=== PATIENT | male | born 1950 | race Caucasian/White ===

== ENCOUNTER 2016-08-16 13:41 | Emergency (ER) | payer BC, OTHER ==
[~2016-08-16] VITALS: Ht 172.7 cm; Wt 81.6 kg
[2016-08-16 13:52] VITALS: BP 136/87
[2016-08-16] MEDS ORDERED: KETOROLAC TROMETH 30 MG/ML 1ML VIAL IM ONE (14:30)
[2016-08-16] MEDS ORDERED: SILVER SULFADIAZINE 1 % TOPICAL CREAM 50GM TOP ONE (14:30)
== END 2016-08-16 15:36 | disposition home or self-care (01) ==
LOC: ER 13:41
DX: T23.221A Burn of second degree of single right finger (nail) except thumb, initial encounter (principal); T23.131A Burn of first degree of multiple right fingers (nail), not including thumb, initial encounter; X13.1XXA Other contact with steam and other hot vapors, initial encounter; Y93.89 Activity, other specified; Y92.89 Other specified places as the place of occurrence of the external cause; Y99.8 Other external cause status
CPT/HCPCS: 16000; 96372; 99284; J1885

== ENCOUNTER 2021-08-31 11:28 | Inpatient (IN) | payer OTHER ==
[~2021-08-31] VITALS: Ht 172.7 cm; Wt 82.3 kg
[2021-08-31] MEDS ORDERED: SODIUM CHLORIDE 0.9% 1,000 ML IV ONE (12:00)
[2021-08-31 12:09] LABS: Basophils # (auto) 0 10 ^3/uL (0-0.2); Basophils % (auto) 0.6 % (0.0-2.0); Eosinophils # (auto) 0.1 10 ^3/uL (0-0.8); Eosinophils % (auto) 0.9 % (0.0-7.0); Hematocrit 39.1 % (41.0-53.0); Hemoglobin 13.7 g/dL (13.5-17.5); Lymphocytes # (auto) 1.6 10 ^3/uL (0.4-5.4); Lymphocytes % (auto) 24.1 % (10.0-50.0); Mean Corpuscular Hgb Conc. 35.1 g/dL (32.0-36.0); Mean Corpuscular Volume 91.1 fL (80.0-100.0); Monocytes # (auto) 0.6 10 ^3/uL (0-1.3); Monocytes % (auto) 9.1 % (0.0-12.0); Neutrophils # (auto) 4.4 10 ^3/uL (1.6-8.6); Neutrophils % (auto) 65.3 % (37.0-80.0); Nucleated Red Blood Cells % 0.1 %; Red Cell Distribution Width 13.6 % (11.8-14.3); White Blood Cell 6.7 10^3/uL (4.4-10.8)
[2021-08-31 12:30] LABS: Albumin 3.5 g/dL (3.4-5.0); Calcium 8.6 mg/dL (8.5-10.1); Potassium 4.1 mmol/L (3.5-5.1)
[2021-08-31 12:39] LABS: Bilirubin, Total 0.7 mg/dL (0.2-1.0); Total Protein 6.1 g/dL (6.4-8.2)
[2021-08-31 12:53] LABS: BUN/Creatinine Ratio 16.4
[2021-08-31 12:57] LABS: INR 1.07 (0.9-1.15); Partial Thromboplastin Time 24.5 sec (23.6-33.0)
[2021-08-31] MEDS ORDERED: ACETAMINOPHEN 325 MG TAB PO PRN ×2 (15:00)
[2021-08-31] MEDS ORDERED: ONDANSETRON HCL 4 MG/2 ML VIAL IV PRN (15:00)
[2021-08-31] MEDS ORDERED: DEXTROSE (50%) 50ML SYRG IV PRN (15:00)
[2021-08-31] MEDS ORDERED: HYDROcodone-ACET 5/325MG TAB PO PRN (15:00)
[2021-08-31] MEDS ORDERED: MORPHINE SULFATE 4 MG/ML SYR/VIAL IV PRN (15:00)
[2021-08-31] MEDS ORDERED: NITROGLYCERIN 0.4 MG SL TAB SL PRN (15:00)
[2021-08-31] MEDS: SODIUM CHLORIDE 0.9% 1,000 ML IV SCH (15:25)
[2021-08-31 17:33] VITALS: BP 143/76
[2021-08-31] MEDS ORDERED: AMLO-489 PO (17:50)
[2021-08-31] MEDS ORDERED: HYDR50TA15 PO (17:50)
[2021-08-31] MEDS ORDERED: LISI40TA11 PO (17:50)
[2021-08-31] MEDS: InsuLIN REG 1unit/0.01ml Soln (100units/ml) SC SCH (17:58)
[2021-08-31] MEDS: ACCU-CHEK COMFORT CURVE STRIP VI SCH (17:59)
[2021-08-31] MEDS: ENOXAPARIN SOD 60 MG/0.6 ML SYRINGE SC SCH (21:46)
[2021-08-31 22:16] VITALS: BP 134/71
[2021-09-01] MEDS: SODIUM CHLORIDE 0.9% 1,000 ML IV SCH ×2 (01:01→07:40)
[2021-09-01 05:26] VITALS: BP 131/77
[2021-09-01 05:59] LABS: Basophils # (auto) 0 10 ^3/uL (0-0.2); Basophils % (auto) 0.7 % (0.0-2.0); Eosinophils # (auto) 0.2 10 ^3/uL (0-0.8); Eosinophils % (auto) 3.2 % (0.0-7.0); Hematocrit 37.5 % (41.0-53.0); Hemoglobin 13.3 g/dL (13.5-17.5); Lymphocytes # (auto) 1.8 10 ^3/uL (0.4-5.4); Lymphocytes % (auto) 34.1 % (10.0-50.0); Mean Corpuscular Hemoglobin 32.2 pg (28.0-32.0); Mean Corpuscular Hgb Conc. 35.4 g/dL (32.0-36.0); Monocytes # (auto) 0.5 10 ^3/uL (0-1.3); Monocytes % (auto) 10.6 % (0.0-12.0); Neutrophils # (auto) 2.6 10 ^3/uL (1.6-8.6); Neutrophils % (auto) 51.4 % (37.0-80.0); Nucleated Red Blood Cells % 0.1 %; Red Blood Cells 4.12 10^6/uL (4.5-5.90); Red Cell Distribution Width 13.3 % (11.8-14.3); White Blood Cell 5.1 10^3/uL (4.4-10.8)
[2021-09-01] MEDS: InsuLIN REG 1unit/0.01ml Soln (100units/ml) SC SCH ×3 (06:00→11:37)
[2021-09-01] MEDS: ACCU-CHEK COMFORT CURVE STRIP VI SCH ×3 (06:00→11:37)
[2021-09-01 06:09] LABS: Albumin 3.1 g/dL (3.4-5.0); BUN/Creatinine Ratio 23.1; Potassium 4.1 mmol/L (3.5-5.1)
[2021-09-01 06:12] LABS: Bilirubin, Total 0.7 mg/dL (0.2-1.0); Total Protein 5.5 g/dL (6.4-8.2)
[2021-09-01] MEDS: ENOXAPARIN SOD 60 MG/0.6 ML SYRINGE SC SCH (08:42)
[2021-09-01 09:00] VITALS: BP 131/79
[2021-09-01] MEDS ORDERED: ENOXAPARIN SOD 40 MG/0.4 ML SYRINGE SC SCH (10:00)
[2021-09-01] MEDS ORDERED: ASPirin 81 mg TAB PO SCH (10:00)
[2021-09-01 12:58] VITALS: BP 139/64
== END 2021-09-01 12:38 | disposition home or self-care (01) | DRG 313 ==
LOC: ER 11:28 → TELE 14:47 → TELE-EAST 17:03
PROVIDERS: ADMIT Internal Medicine; ATTEND Internal Medicine
DX: R07.9 Chest pain, unspecified (principal); N17.9 Acute kidney failure, unspecified; I10 Essential (primary) hypertension; I95.9 Hypotension, unspecified; Z20.822 Contact with and (suspected) exposure to COVID-19
CPT/HCPCS: 36415; 71045; 80053; 82962; 84484; 85025; 85610; 85730; 93005; 93306; 96360; G0378

== ENCOUNTER 2022-11-13 11:28 | Emergency (ER) | payer OTHER ==
[~2022-11-13] VITALS: Ht 172.7 cm; Wt 81.8 kg
[~2022-11-13 11:28] MED LIST: AMLO1TAB22 PO; HYDR-4297 PO; LISI40TA16 PO
[2022-11-13 13:15] VITALS: BP 101/82
[2022-11-13] MEDS ORDERED: TETANUS-DIPTH-ACEL PERTUSSIS 0.5ML SYR Tdap IM ONE (13:30)
[2022-11-13] MEDS ORDERED: LIDOCAINE 1% HCL (LOCAL ANESTH.) INJ 20ML MDV ID ONE (13:30)
== END 2022-11-13 14:47 | disposition home or self-care (01) ==
LOC: ER 11:28
DX: S61.412A Laceration without foreign body of left hand, initial encounter (principal); S61.211A Laceration without foreign body of left index finger without damage to nail, initial encounter; I10 Essential (primary) hypertension; W29.3XXA Contact with powered garden and outdoor hand tools and machinery, initial encounter; Y93.89 Activity, other specified; Y92.89 Other specified places as the place of occurrence of the external cause; Y99.8 Other external cause status
CPT/HCPCS: 12002; 90471; 90715; 99283; J2001

== ENCOUNTER 2024-11-04 16:19 | Inpatient (IN) | payer OTHER, MEDICARE ==
[~2024-11-04] VITALS: Ht 172.7 cm; Wt 85.4 kg
[~2024-11-04 16:19] MED LIST changes: -HYDR-4297 PO; +HYDR50TA47 PO
--- NOTE | 2024-11-04 16:31 | ECG ---
[facility] Test Date: 2024-11-04 Test Time: 16:26:09 Pat Name: KAN REDDY Department: ER Room: 0273T Gender: M Supervisor Bindery: GP : 1950 Requested By: DAVID WHITLEY Order Number: [id number] Reading MD: Deondre Soto Measurements Intervals [place] Rate: 79 P: 46 ME: 161 QRS: -37 QRSD: 169 T: 31 QT: 428 QTc: 491 Interpretive Statements Sinus rhythm Ventricular bigeminy Right bundle branch block Baseline wander in lead(s) V1 Electronically Signed On 11-05-2024 12:37:57 PDT by Deondre Soto Please click the below link to view image of tracing.
--- NOTE | 2024-11-04 16:38 | ED.PDOC ---
History of Present Illness HPI Comments This is a 74-year-old male who comes in with chief complaint of chest pain for the past two months. The pain has been somewhat sporadic but now seems to be worse. The patient now states that the pain is constant and substernal with no radiation. There has been no nausea, vomiting or diarrhea. The patient is currently awaiting a Cardiology consult and is being evaluated by pulmonology. According to the family, the patient may have had a very small IA in the past but was never fully diagnosed and did not receive any treatment. At this time the patient states that the pain is an 8/10. The patient denies any fever or cough. The patient also denies any chills. The patient was brought to the emergency department's by his from home. Time Seen by MD: 16:21 Primary Care Provider: [place] Reviewed Notes: Nurses Notes, Medications, Allergies (No allergies to medications) Allergies: Coded Allergies: NO KNOWN ALLERGIES (Unverified , 08/16/16) Home Meds Reported Medications Lisinopril (Lisinopril) 40 Mg Tab, 40 MG PO DAILY for 30 Days, MG 08/31/21 Amlodipine Besylate (Amlodipine Besylate) 5 Mg Tab, 10 MG PO DAILY for 30 Days, MG 08/31/21 Hydralazine Hcl (Hydralazine Hcl) 50 Mg Tab, 50 MG PO TID for 30 Days, MG 08/31/21 Information Source: Patient, Spouse Mode of Arrival: Wheelchair (See that these into 80s) Severity: Moderate Timing: Days Duration: Intermittent Prehospital treatment: None Associated signs and symptoms Chest pain but no shortness a breath or vomiting Past Medical History PAST MEDICAL HISTORY: HTN Surgical History (Other): Left leg surgery, right shoulder surgery Family History Family History: Family hx of heart julienne, Family hx of stroke Social History Smoker: Non-Smoker Alcohol: Occasionally Drugs: Denies Drug Use Lives In: Home Constitutional: denies: chills, diaphoresis, fatigue, fever, malaise, sweats, weakness, others EENTM: denies: blurred vision, double vision, ear bleeding, ear discharge, ear drainage, ear pain, ear ringing, eye pain, eye redness, hearing loss, mouth pain, mouth swelling, nasal discharge, nose bleeding, nose congestion, nose pain, photophobia, tearing, throat pain, throat swelling, voice changes, others Respiratory: denies: cough, hemoptysis, orthopnea, SOB at rest, shortness of breath, SOB with excertion, stridor, wheezing, others Cardiovascular: reports: chest pain; denies: dizzy spells, diaphoresis, Dyspnea on exertion, edema, irregular heart beat, left arm pain, lightheadedness, palpitations, PND, syncope, others Gastrointestinal: denies: abdomen distended, abdominal pain, blood streaked bowels, constipated, diarrhea, dysphagia, difficulty swallowing, hematemesis, melena, nausea, poor appetite, poor fluid intake, rectal bleeding, rectal pain, vomiting, others Genitourinary: denies: burning, dysuria, flank pain, frequency, hematuria, incontinence, penile discharge, penile sore, pain, testicle pain, testicle swelling, urgency, others Neurological: denies: dizziness, fainting, headache, left sided numbness, left sided weakness, numbness, paresthesia, pre-existing deficit, right sided numbness, right sided weakness, seizure, speech problems, tingling, tremors, weakness, others Musculoskeletal: denies: back pain, gout, joint pain, joint swelling, muscle pain, muscle stiffness, neck pain, others Integumetry: denies: bruises, change in color, change in hair/nails, dryness, laceration, lesions, lumps, rash, wounds, others Allergic/Immunocompromised: denies: Difficulty Healing, Frequent Infections, Hives, Itching, others Hematologic/Lymphatic: denies: anemia, blood clots, easy bleeding, easy bruising, swollen glands, others Endocrine: denies: excessive hunger, excessive sweating, excessive thirst, excessive urination, flushing, intolerance to cold, intolerance to heat, unexplained weight gain, unexplained weight loss, others Psychiatric: denies: anxiety, bipolar disorder, depression, hopeless, panic disorder, schizophrenia, sleepless, suicidal, others Physical Exam General Appearance: Moderate Distress HEENT: Normal ENT Inspection, Pharynx Normal, TMs Normal Neck: Full Range of Motion, Non-Tender, Normal, Normal Inspection Respiratory: Chest Non-Tender, Lungs Clear, No Accessory Muscle Use, No Respiratory Distress, Normal Breath Sounds Cardiovascular: No Edema, No JVD, No Murmur, No Gallop, Normal Peripheral Pulses, Regular Rate/Rhythm Breast Exam: Deferred Gastrointestinal: No Organomegaly, Non Tender, No Pulsatile Mass, Normal Bowel Sounds, Soft Genitalia: Deferred Pelvic: Deferred Rectal: Deferred Extremities: No calf tenderness, Normal capillary refill, Normal inspection, Normal range of motion, Non-tender, No pedal edema Musculoskeletal : Apperance: Normal Neurologic: Alert, well driller II-XII nml as Tested, Motor Weakness, Normal Affect, Normal Mood, No Sensory Deficits Cerebellar Function: Normal Reflexes: Normal Skin: Dry, Normal Color, Warm Lymphatic: No Adenopathy Was a procedure done? Was a procedure done?: No EKG EKG : Pulse Rate (adult): 79 [place]: Normal Block: RBBB ST: Nonsp Differential Dx Considerations may include: ACS, IA, generalized weakness, dehydration X-Ray, Labs, Meds, VS Vital Signs Date Time Temp Pulse Resp B/P (MAP) Pulse Ox O2 Delivery O2 Flow Rate FiO2 11/04/24 20:20 97.6 58 18 134/75 (94) 95 97.6 11/04/24 20:19 Room Air* 0 21 11/04/24 18:20 58 18 120/72 (88) 98 11/04/24 18:20 58 18 97 Room Air 11/04/24 17:03 97.3 61 16 129/66 (87) 97 97.3 11/04/24 16:38 79 11/04/24 16:26 79 Lab Test 11/04/24 19:21 11/04/24 17:45 11/04/24 17:36 11/04/24 16:28 Range/Units Troponin I High Sensitivity 5 5 5 </=54 ng/L Urine Color Light-yellow Yellow Urine Clarity Clear Clear Urine pH 5.5 5.0-9.0 Urine Specific [place] 1.016 1.001-1.035 Urine Protein Negative Negative Urine Ketones Negative Negative Urine Blood Negative Negative /uL Urine Nitrite Negative Negative Urine Bilirubin Negative Negative Urine Urobilinogen Normal Negative mg/dL Urine Leukocyte Esterase Negative Negative /uL Urine RBC None seen 0 - 3 /hpf Urine Microscopic WBC < 1 0-3 /HPF Urine Squamous Epithelial Cells None seen <5 /hpf Urine Bacteria None seen None Seen /hpf Urine Mucus Few None Seen Urine Glucose Normal Normal mg/dL White Blood Count 9.5 4.4-10.8 10^3/uL Red Blood Count 4.72 4.5-5.90 10^6/uL Hemoglobin 14.6 13.5-17.5 g/dL Hematocrit 42.2 41.0-53.0 % Mean Corpuscular Volume 89.5 80.0-100.0 fL Mean Corpuscular Hemoglobin 31.0 28.0-32.0 pg Mean Corpuscular Hemoglobin Concent 34.7 32.0-36.0 g/dL Red Cell Distribution Width 13.7 11.8-14.3 % Platelet Count 158 140-450 10^3/uL Mean Platelet Volume 8.7 6.9-10.8 fL Neutrophils (%) (Auto) 57.6 37.0-80.0 % Lymphocytes (%) (Auto) 31.5 10.0-50.0 % Monocytes (%) (Auto) 8.9 0.0-12.0 % Eosinophils (%) (Auto) 1.3 0.0-7.0 % Basophils (%) (Auto) 0.7 0.0-2.0 % Neutrophils # (Auto) 5.4 1.6-8.6 10 ^3/uL Lymphocytes # (Auto) 3.0 0.4-5.4 10 ^3/uL Monocytes # (Auto) 0.8 0-1.3 10 ^3/uL Eosinophils # (Auto) 0.1 0-0.8 10 ^3/uL Basophils # (Auto) 0.1 0-0.2 10 ^3/uL Nucleated Red Blood Cells 0.1 % D-Dimer, Quantitative 1.80 H 0.0-0.49 mg/L FEU Sodium Level 141 136-145 mmol/L Potassium Level 4.4 3.5-5.1 mmol/L Chloride Level 109 H 98-107 mmol/L Carbon Dioxide Level 24 20-31 mmol/L Anion Gap 8 5-15 Blood Urea Nitrogen 23 9-23 mg/dL Creatinine 0.93 0.700-1.30 mg/dL Glomerular Filtration Rate Calc 86 >90 mL/min BUN/Creatinine Ratio 24.7 H 10.0-20.0 Serum Glucose 84 74-106 mg/dL Calcium Level 9.5 8.7-10.4 mg/dL Magnesium Level 1.9 1.6-2.6 mg/dL Current Medications Medications (Trade) Dose Ordered Sig/Doreen Route Start Time Stop Time Status Last Admin Aspirin 162 mg ONCE ONCE PO 11/04/24 16:30 11/04/24 16:31 DC 11/04/24 18:20 IV Hep-Lock was established. The patient was given aspirin here in the emergency department's The CBC is within normal limits The chemistry panel is within normal limits The troponin level repeated is negative The D-dimer is elevated at 1.8 The patient is being admitted to our hospitalist A CAT scan of the chest is being done to rule out PE The urine test is negative At this time, the patient is being admitted Images Reviewed?: Images reviewed and evaluated by me Time of 1ST Reevaluation: 16:37 Reevaluation 1ST: Unchanged Patient Education/Counseling: Diagnosis, Treatment, Prognosis Family Education/Counseling: Diagnosis, Treatment, Prognosis Departure 1 Departure Time of Disposition: 20:32 Impression: Primary Impression: Acute coronary syndrome Additional Impression: Elevated d-dimer Disposition: ADMITTED INPATIENT Admit to: [facility] Condition: Fair Critical Care Note Critical Care Time?: Yes (35 min-critical care time only) Stability Stability form required: Yes Unstable for transfer: Telemetry monitoring (Telemetry monitoring required), ED Physician Assesment (Clinical assesment) Heart Score Heart Score: Heart Score Response (Comments) Value History Moderate Suspicious 1 EKG Repolarization Disturb 1 Age >65 2 Risk Factors >3 or Hx ASHD 2 Troponin Normal limit 0 Total 6 DAVID WHITLEY MD Nov 04, 2024 16:38
[2024-11-04 16:57] LABS: Basophils # (auto) 0.1 10 ^3/uL (0-0.2); Basophils % (auto) 0.7 % (0.0-2.0); Eosinophils # (auto) 0.1 10 ^3/uL (0-0.8); Eosinophils % (auto) 1.3 % (0.0-7.0); Hematocrit 42.2 % (41.0-53.0); Hemoglobin 14.6 g/dL (13.5-17.5); Lymphocytes % (auto) 31.5 % (10.0-50.0); Mean Corpuscular Hgb Conc. 34.7 g/dL (32.0-36.0); Mean Corpuscular Volume 89.5 fL (80.0-100.0); Monocytes # (auto) 0.8 10 ^3/uL (0-1.3); Monocytes % (auto) 8.9 % (0.0-12.0); Neutrophils # (auto) 5.4 10 ^3/uL (1.6-8.6); Neutrophils % (auto) 57.6 % (37.0-80.0); Nucleated Red Blood Cells % 0.1 %; Platelet Count (auto) 158 10^3/uL (140-450); Red Blood Cells 4.72 10^6/uL (4.5-5.90); Red Cell Distribution Width 13.7 % (11.8-14.3); White Blood Cell 9.5 10^3/uL (4.4-10.8)
[2024-11-04 17:00] LABS: Potassium 4.4 mmol/L (3.5-5.1); Sodium 141 mmol/L (136-145)
[2024-11-04 17:01] LABS: Anion Gap 8 (5-15); Calcium 9.5 mg/dL (8.7-10.4); Carbon Dioxide 24 mmol/L (20-31)
--- NOTE | 2024-11-04 17:05 | DVH ---
EXAM: XY CHEST PORTABLE HISTORY: CP COMPARISON: CXRP on DOS: 08/31/21, CHEST PORTABLE on DOS: 08/31/21 TECHNIQUE: Portable upright AP view of the chest was performed. FINDINGS: No pneumothorax, consolidative infiltrates, or pulmonary edema. The heart is borderline enlarged. The humeral heads are high-riding, greater on the right, consistent with significant rotator cuff tendin opathy. There may be postoperative changes of the right shoulder. IMPRESSION: No acute intrathoracic process.
[2024-11-04 17:06] LABS: BUN/Creatinine Ratio 24.7 (10.0-20.0); Blood Urea Nitrogen 23 mg/dL (9-23); Glucose 84 mg/dL (74-106)
[2024-11-04 17:07] LABS: Magnesium 1.9 mg/dL (1.6-2.6)
[2024-11-04 17:08] LABS: Chloride 109 mmol/L (98-107)
--- NOTE | 2024-11-04 17:26 | DVH ---
EXAM: US LT LOWER DVT Clinical History: left leg swelling Comparison: None Technique: Duplex Doppler evaluation of the deep venous systems of the left lower extremity from the common femo ral veins to the popliteal veins including color Doppler and spectral/pulsed waveform analysis was pe rformed. Findings: No visible intraluminal venous thrombus. No evidence of incompressibility or abnormal color or spectr al Doppler flow visualized in the deep left lower extremity veins. Proximal greater saphenous vein is grossly unremarkable. 3.3 cm benign-appearing lymph node in the left groin. 7.3 cm Reveles's cyst. Impression: 1. No sonographic evidence of deep venous thrombosis throughout the left lower extremity from the pop liteal vein to the common femoral vein.
[2024-11-04 18:02] LABS: Urine Bacteria None Seen /hpf (None Seen)
[2024-11-04 18:10] LABS: Urine Blood Negative /uL (Negative); Urine Clarity Clear (Clear); Urine Color Light-Yellow (Yellow); Urine Mucus FEW (None Seen); Urine Protein, UAD Negative (Negative); Urine Specific Gravity 1.016 (1.001-1.035); Urine Squamous Epithelial Cell None Seen /hpf (<5); Urine Urobilinogen Normal (Negative); Urine WBC < 1 /HPF (0-3); Urine pH 5.5 (5.0-9.0)
[2024-11-04] MEDS: ASPirin 81 mg TAB PO ONE (18:20)
[2024-11-04] MEDS: IOHEXOL 350 MG/ML 100ML IJ ONE (20:31)
--- NOTE | 2024-11-04 22:05 | DVH ---
Procedure: CT CT ANGIO CHEST CONTRAST Reason for study/Clinical History: sob Comparison Study: None Exam Date: 11/04/2024 08:[address] Angio Chest with Contrast TECHNIQUE: Multiple axial CT images of chest was performed following intravenous contrast administrat ion and coronal reformatting was performed. 3-D/MIP images were obtained. Radiation Dose : CTDI volume is 24 mGy. Dose-length product is 150 mGy*cm FINDINGS: Pulmonary Arteries: There are no filling defects within main, lobar, segmental and visualized subsegm ental branch pulmonary arteries. There is normal dimensional of main PA. Lungs: There is no peripheral pulmonary infarction, consolidation, pleural effusion, or right heart strain. There is no pneumothorax or pneumomediastinum. Aorta and Vasculature: There is normal caliber of thoracic aorta without evidence of aortic dissecti on, intramural hematoma or aneurysm. Lymph Nodes: There is no significant intrathoracic or axillary lymphadenopathy on CT size criteria. Lower Neck: Visualized portions of the thyroid gland are unremarkable. Mediastinum: Heart size is normal. There is no pericardial effusion. The esophagus is unremarkabl e. Musculoskeletal: No aggressive focal bony lesions, acute fractures or dislocation. Chest wall: Unremarkable Partially visualized upper abdomen is grossly unremarkable. IMPRESSION: No evidence of acute or chronic pulmonary embolism. END IMPRESSION: All CT scans at this medical facility are performed using dose modulation techniques as appropriate t o a performed exam including the following: Automated exposure control was utilized; adjustment of th e MA and/or KV according to patient size; and use of iterative reconstruction technique.
[2024-11-04] MEDS ORDERED: NITROGLYCERIN 0.4 MG SL TAB SL PRN (23:00)
[2024-11-04] MEDS ORDERED: MORPHINE SULFATE INJ 2 MG/ml SYRG IV PRN (23:00)
[2024-11-05] VITALS (8 sets, daily range): BP systolic 115–149; BP diastolic 65–85; PULSE 48–65; RESP 12–18; TEMP 97–98.9; O2SAT 91–97
[2024-11-05] MEDS ORDERED: CHOL20007 PO (02:51)
[2024-11-05] MEDS: PANTOPRAZOLE 40 MG TAB PO SCH (05:52)
--- NOTE | 2024-11-05 06:30 | DVHHPRES ---
History of Present Illness Resident Creating Document: DL MOJICA RESIDENT History of Present Illness Patient is a 74-year-old male with a past medical history of hypertension presented to the ED with a chief complaint of chest pain. Patient reports chest pain on and off in the last month, described the has pressure-like in character in the middle of his chest, nonradiating, occurred while he was ambulating or at rest had relieved on its own. Patient reports the chest pain got worse yesterday associated with shortness of breath and tightness, palpitations and numbness of his arms but denied sweating following which she came to the hospital for further evaluation. Patient goes to the [facility] and reports that about 3 weeks ago echocardiogram was done which was reported to be normal but he does not have the official report. Past medical history: Hypertension Past surgical history: Multiple surgeries of the left knee for knee replacement Social history: Patient lives with and denies smoking, alcohol, drug use Family history: Patient denies any significant family history of coronary artery disease Home medications: As per the patient she takes amlodipine for high blood pressure,( records indicate lisinopril as well as hydralazine in addition to amlodipine) Review of Systems Review of Systems Seen and examined at the bedside Denies of chest pain present, no shortness of breath Allergies: Coded Allergies: NO KNOWN ALLERGIES (Unverified , 08/16/16) Medications Current Medications Medications Dose Ordered Sig/Doreen Route Start Time Stop Time Status Last Admin Dose Admin Nitroglycerin 0.4 mg Q5MINP PRN SL 11/04/24 23:00 Morphine Sulfate 2 mg Q30M PRN IV 11/04/24 23:00 Amlodipine Besylate 5 mg DAILY PO 11/05/24 10:00 Pantoprazole Sodium 40 mg DAILY@0600 PO 11/05/24 06:00 11/05/24 05:52 40 MG Exam Vital Signs Vital Signs Date Time Temp Pulse Resp B/P (MAP) Pulse Ox O2 Delivery O2 Flow Rate FiO2 11/05/24 05:00 97.6 59 18 140/77 (98) 96 97.6 11/05/24 02:00 Room Air* 0 21 Exam Gen - no pallor, no icterus, no cyanosis, no clubbing, no LAD, no edema . Skin - Patients skin is warm and dry. HEENT - normocephalic, atraumatic, moist mucous membranes. Neck - full ROM, no LAD, no JVD Pulmonary - B/L equal breath sounds, no crackles, no wheezing, no stridor. cardiovascular - regularly irregular S1,S2 heard, no added sounds, no murmurs heard. GI - soft, nontender abdomen. no hepatospleenomegaly. Bowel sounds normoactive Neurological - Patient is A/O X 3 . Bilateral upper extremity strength 5/5, bilateral lower extremity strength 5/5, no facial droop, normal speech, no tremor, no sensory deficiets. Labs/Xrays Labs Test 11/04/24 19:21 11/04/24 17:45 11/04/24 16:28 Range/Units Troponin I High Sensitivity 5 </=54 ng/L Urine Color Light-yellow Yellow Urine Clarity Clear Clear Urine pH 5.5 5.0-9.0 Urine Specific [place] 1.016 1.001-1.035 Urine Protein Negative Negative Urine Ketones Negative Negative Urine Blood Negative Negative /uL Urine Nitrite Negative Negative Urine Bilirubin Negative Negative Urine Urobilinogen Normal Negative mg/dL Urine Leukocyte Esterase Negative Negative /uL Urine RBC None seen 0 - 3 /hpf Urine Microscopic WBC < 1 0-3 /HPF Urine Squamous Epithelial Cells None seen <5 /hpf Urine Bacteria None seen None Seen /hpf Urine Mucus Few None Seen Urine Glucose Normal Normal mg/dL White Blood Count 9.5 4.4-10.8 10^3/uL Red Blood Count 4.72 4.5-5.90 10^6/uL Hemoglobin 14.6 13.5-17.5 g/dL Hematocrit 42.2 41.0-53.0 % Mean Corpuscular Volume 89.5 80.0-100.0 fL Mean Corpuscular Hemoglobin 31.0 28.0-32.0 pg Mean Corpuscular Hemoglobin Concent 34.7 32.0-36.0 g/dL Red Cell Distribution Width 13.7 11.8-14.3 % Platelet Count 158 140-450 10^3/uL Mean Platelet Volume 8.7 6.9-10.8 fL Neutrophils (%) (Auto) 57.6 37.0-80.0 % Lymphocytes (%) (Auto) 31.5 10.0-50.0 % Monocytes (%) (Auto) 8.9 0.0-12.0 % Eosinophils (%) (Auto) 1.3 0.0-7.0 % Basophils (%) (Auto) 0.7 0.0-2.0 % Neutrophils # (Auto) 5.4 1.6-8.6 10 ^3/uL Lymphocytes # (Auto) 3.0 0.4-5.4 10 ^3/uL Monocytes # (Auto) 0.8 0-1.3 10 ^3/uL Eosinophils # (Auto) 0.1 0-0.8 10 ^3/uL Basophils # (Auto) 0.1 0-0.2 10 ^3/uL Nucleated Red Blood Cells 0.1 % D-Dimer, Quantitative 1.80 H 0.0-0.49 mg/L FEU Sodium Level 141 136-145 mmol/L Potassium Level 4.4 3.5-5.1 mmol/L Chloride Level 109 H 98-107 mmol/L Carbon Dioxide Level 24 20-31 mmol/L Anion Gap 8 5-15 Blood Urea Nitrogen 23 9-23 mg/dL Creatinine 0.93 0.700-1.30 mg/dL Glomerular Filtration Rate Calc 86 >90 mL/min BUN/Creatinine Ratio 24.7 H 10.0-20.0 Serum Glucose 84 74-106 mg/dL Calcium Level 9.5 8.7-10.4 mg/dL Magnesium Level 1.9 1.6-2.6 mg/dL Assessment/Plan Assessment/Plan Acute chest pain, rule out ACS ?Stable angina Premature ventricular contraction Hypertensive heart disease Asymptomatic sinus bradycardia PE ruled out - ECG shows premature ventricular contraction with a ventricular bigemini, right bundle branch block - echo pending - cardiology consult due to EKG abnormality and typical chest pain, might benefit from a stress test - aspirin - amlodipine PUD prophylaxis: Protonix Goals of care discussed with the patient for over 27 minutes. Full code Plan discussed with the Dr. Fiore Plan discussed with: Patient My Orders Orders - DL MOJICA RESIDENT Procedure Category Date Status Time Admit ADMIT 11/04/24 Transmitted 22:48 Nitroglycerin PHA 11/04/24 In Process Sublingual (Ntrostat 23:00 Morphine Sulfate PHA 11/04/24 In Process Injection 23:00 Oxygen By Nasal RT 11/04/24 Transmitted Cannula 22:48 Stat Ekg For Chest DWAYNE 11/04/24 In Process Pain 22:48 Notify Of Changes [facility] 11/04/24 In Process From Base 22:48 Eyeglass Lens Generator For [facility] 11/04/24 In Process 24 Hours 22:48 Emergency Dysrhythmia [facility] 11/04/24 In Process Protocol 22:48 Rhythm Strips Once [facility] 11/04/24 In Process Every Shift 22:48 Echo 2d Mode Cardiac US 11/04/24 Logged DOP 22:48 Amlodipine Tablet [facility] 11/05/24 In Process (Norvasc Tablet) 10:00 Pantoprazole Tablet PHA 11/05/24 In Process (Protonix Tablet) 06:00 Cardiac DIET 11/05/24 Transmitted Diet-2gna,Lofat,Lochol Breakfast Date of Service: Nov 04, 2024 Billing Provider: MICHELLE FIORE MD Common Visit Codes: 93739-[id number] INP/OBS CARE (HIGH) Secondary Visit Codes: [id number] CARE PLAN 30 MINUTES DL MOJICA RESIDENT Nov 05, 2024 06:30
[2024-11-05 07:25] LABS: Alanine Aminotransferase 17 U/L (7-40); Alkaline Phosphatase 109 U/L (46-116); Anion Gap 5 (5-15); Aspartate Aminotransferase 16 U/L (13-40); Blood Urea Nitrogen 16 mg/dL (9-23); Calcium 9.3 mg/dL (8.7-10.4); Carbon Dioxide 26 mmol/L (20-31); Cholesterol 167 mg/dL (< 200); Glucose 101 mg/dL (74-106); HDL Cholesterol 50 mg/dL (40-59); Magnesium 2.1 mg/dL (1.6-2.6); Potassium 4.1 mmol/L (3.5-5.1); Sodium 141 mmol/L (136-145); Total Protein 6.2 g/dL (5.7-8.2); Triglycerides 91 mg/dL (< 150)
[2024-11-05 07:26] LABS: Bilirubin, Total 0.4 mg/dL (0.2-1.0)
[2024-11-05 07:28] LABS: Chloride 110 mmol/L (98-107); LDL Cholesterol 101 mg/dL (< 100)
[2024-11-05] MEDS: ATORVASTATIN 20 MG TAB PO ONE (09:53)
[2024-11-05] MEDS: ASPirin 81 mg TAB PO SCH (09:54)
[2024-11-05] MEDS: amLODIPine BESYLATE 5 MG TAB PO SCH (12:04)
--- NOTE | 2024-11-05 14:47 | DVHINCON2 ---
Date Seen: Nov 05, 2024 Referring Physician MD Raissa resident Reason for Consultation Chest pain, possible stress test History of Present Illness This is a 74-year-old male patient who presents to the emergency room with chief complaint of chest pain. The patient reports he has been experiencing intermittent chest pain for approximately two months he describes the pain as unprovoked, intermittent, tight in nature, substernal with radiation across both sides of his chest. Associated symptoms include shortness of breath. Initial twelve lead electrocardiogram reveals sinus rhythm with bigeminy PVCs and right bundle branch block. Serial troponin levels have been negative. Significant past medical history includes hypertension, and obesity. The patient reports that his primary doctor was in the process of giving him a referral to a superintendent local. The patient sees a primary doctor within the [facility] system at [place]. He denies any recent cardiac workup. Past Medical History Past medical history reviewed. No other significant than mentioned above. Past Surgical History Left knee replacement Right rotator cuff repair Family History: Cardiovascular disease G8 MOTHER Family History Family history reviewed. Social History Denies the use of tobacco, alcohol or illicit drugs. Allergies: Coded Allergies: NO KNOWN ALLERGIES (Unverified , 08/16/16) Home Meds Reported Medications Cholecalciferol (VITAMIN D3) 2,000 Unit Tab, 1 TAB PO DAILY, #30 TAB 5 Refills 11/05/24 Hydralazine Hcl (Hydralazine Hcl) 50 Mg Tab, 50 MG PO TID for 30 Days, MG 08/31/21 Home Meds Home medications reviewed. Current Medications Current Medications Medications (Trade) Dose Ordered Sig/Doreen Route PRN Reason Start Time Stop Time Status Last Admin Nitroglycerin (Ntrostat Sublingual) 0.4 mg Q5MINP PRN SL FOR CHEST PAIN 11/04/24 23:00 Morphine Sulfate 2 mg Q30M PRN IV FOR CHEST PAIN 11/04/24 23:00 Amlodipine Besylate (Norvasc Tablet) 5 mg DAILY PO 11/05/24 10:00 11/05/24 12:04 Pantoprazole Sodium (Protonix Tablet) 40 mg DAILY@0600 PO 11/05/24 06:00 11/05/24 05:52 Aspirin 81 mg DAILY PO 11/05/24 10:00 11/05/24 09:54 Atorvastatin Calcium (Lipitor) 80 mg HS PO 11/06/24 22:00 Review of Systems Constitutional: No symptom reported Ears, Nose, & Throat: No symptom reported Eyes: No symptom reported Neurological: No symptoms reported Pulmonary/Respiratory: Shortness of breath Cardiovascular: Chest pain Gastrointestinal: No symptom reported Genitourinary: No symptom reported Musculoskeletal: No symptom reported Skin: No symptom reported Psychiatric: No symptom reported Endocrine: No symptom reported Hematologic/Lymphatic: No symptom reported Vital Signs Vital Signs Date Time Temp Pulse Resp B/P (MAP) Pulse Ox O2 Delivery O2 Flow Rate FiO2 11/05/24 12:39 97.3 64 16 132/85 (101) 95 97.3 11/05/24 08:00 Room Air* 0 96 21 Physical Exam General Appearance: Cooperative. Obese Pulmonary/Respiratory: Clear, bilateral breaths sounds. Cardiovascular/Chest: Regular rate and rhythm. Peripheral Pulses: 2+ Radial (R). 2+ Radial (L). 2+ Pedal (R). 2+ Pedal (L) Abdominal Exam: Normal bowel sounds. Ankle Exam: Negative ankle edema Lower extremities: Negative lower extremity edema Neuro/Mental Status: A/OX4, coherent. Thoughts/Psych: Normal thought pattern. Appropriate mood and affect. Good judgment and insight. Appearance: No acute distress. Skin Exam: Normal inspection. Normal color. Warm and dry. Labs/Diagnostic Data Labs Test 11/05/24 06:47 11/04/24 19:21 11/04/24 17:45 11/04/24 16:28 Range/Units Sodium Level 141 136-145 mmol/L Potassium Level 4.1 3.5-5.1 mmol/L Chloride Level 110 H 98-107 mmol/L Carbon Dioxide Level 26 20-31 mmol/L Anion Gap 5 5-15 Blood Urea Nitrogen 16 9-23 mg/dL Creatinine 0.94 0.700-1.30 mg/dL Glomerular Filtration Rate Calc 85 >90 mL/min BUN/Creatinine Ratio 17.0 10.0-20.0 Serum Glucose 101 74-106 mg/dL Calcium Level 9.3 8.7-10.4 mg/dL Magnesium Level 2.1 1.6-2.6 mg/dL Total Bilirubin 0.4 0.2-1.0 mg/dL Aspartate Amino Transferase (AST) 16 13-40 U/L Alanine Aminotransferase (ALT) 17 7-40 U/L Alkaline Phosphatase 109 46-116 U/L B-Type Natriuretic Peptide 60.38 0-100 pg/mL Total Protein 6.2 5.7-8.2 g/dL Albumin 4.0 3.2-4.8 g/dL Triglycerides Level 91 < 150 mg/dL Cholesterol Level 167 < 200 mg/dL LDL Cholesterol 101 H < 100 mg/dL HDL Cholesterol 50 40-59 mg/dL Troponin I High Sensitivity 5 </=54 ng/L Urine Color Light-yellow Yellow Urine Clarity Clear Clear Urine pH 5.5 5.0-9.0 Urine Specific [place] 1.016 1.001-1.035 Urine Protein Negative Negative Urine Ketones Negative Negative Urine Blood Negative Negative /uL Urine Nitrite Negative Negative Urine Bilirubin Negative Negative Urine Urobilinogen Normal Negative mg/dL Urine Leukocyte Esterase Negative Negative /uL Urine RBC None seen 0 - 3 /hpf Urine Microscopic WBC < 1 0-3 /HPF Urine Squamous Epithelial Cells None seen <5 /hpf Urine Bacteria None seen None Seen /hpf Urine Mucus Few None Seen Urine Glucose Normal Normal mg/dL White Blood Count 9.5 4.4-10.8 10^3/uL Red Blood Count 4.72 4.5-5.90 10^6/uL Hemoglobin 14.6 13.5-17.5 g/dL Hematocrit 42.2 41.0-53.0 % Mean Corpuscular Volume 89.5 80.0-100.0 fL Mean Corpuscular Hemoglobin 31.0 28.0-32.0 pg Mean Corpuscular Hemoglobin Concent 34.7 32.0-36.0 g/dL Red Cell Distribution Width 13.7 11.8-14.3 % Platelet Count 158 140-450 10^3/uL Mean Platelet Volume 8.7 6.9-10.8 fL Neutrophils (%) (Auto) 57.6 37.0-80.0 % Lymphocytes (%) (Auto) 31.5 10.0-50.0 % Monocytes (%) (Auto) 8.9 0.0-12.0 % Eosinophils (%) (Auto) 1.3 0.0-7.0 % Basophils (%) (Auto) 0.7 0.0-2.0 % Neutrophils # (Auto) 5.4 1.6-8.6 10 ^3/uL Lymphocytes # (Auto) 3.0 0.4-5.4 10 ^3/uL Monocytes # (Auto) 0.8 0-1.3 10 ^3/uL Eosinophils # (Auto) 0.1 0-0.8 10 ^3/uL Basophils # (Auto) 0.1 0-0.2 10 ^3/uL Nucleated Red Blood Cells 0.1 % D-Dimer, Quantitative 1.80 H 0.0-0.49 mg/L FEU Assessment Chest pain, rule out coronary ischemia Rule out structural heart disease Hypertension Obesity Plan/Recommendation We will continue with the following plan/recommendations (Dr. Mazariegos): * Transthoracic echocardiogram to evaluate cardiac function * Chest pain protocol * HEART score: 4 points (moderate score) * Blood pressure control * Cardiac surveillance * Nuclear stress test Patient seen and examined at bedside with . We will proceed with a nuclear stress test at soonest availability. In the meantime, continue with medical management. Thank you for allowing us to care for this patient. Please call with any questions or concerns. Critical care time spent: 44 minutes This medical document was created using an electronic medical record system with voice recognition software and computerized dictation system. Although this document has been carefully reviewed, there might still be some phonetic and typographical errors. Occasional wrong-word or ``sound-alike substitutions may have occurred due to the inherent limitations of voice recognition software. These areas are purely typographical due to imperfections of the software programs and do not reflect any compromise in the patient's medical care. Please read the chart carefully and recognize, using context, where these substitutions have occurred. Plan discussed with: Patient NYHA Physical activity limitations: NA Date of Service: Nov 05, 2024 Billing Provider: WHITLEY GORMAN Cardiology Common Codes: [id number] INP/OBS CARE (High) Cardiology Consultation Codes: [id number] CONSULT <45MIN WHITLEY GORMAN Nov 05, 2024 14:47
--- NOTE | 2024-11-05 18:51 | DVHPNRES ---
Progress Note Date Seen: Nov 05, 2024 Resident Creating Document: MANOJ POE HEYDI Has the PT tested + for MRSA If YES, has PT been informed?: No Medical Necessity Reason Pt with a Central, PICC or Fol: No Subjective Review of Systems Patient is a 74-year-old male with a past medical history of hypertension presented to the ED with a chief complaint of chest pain. Patient reports chest pain on and off in the last month, described the has pressure-like in character in the middle of his chest, nonradiating, occurred while he was ambulating or at rest had relieved on its own. Patient reports the chest pain got worse yesterday associated with shortness of breath and tightness, palpitations and numbness of his arms but denied sweating following which she came to the hospital for further evaluation. Patient goes to the [facility] and reports that about 3 weeks ago echocardiogram was done which was reported to be normal but he does not have the official report. Patient seen and examined at the bedside. Patient is feeling better since admission but still complained of mild chest pain. Objective vital signs Vital Sign Date Time Temp Pulse Resp B/P (MAP) Pulse Ox O2 Delivery O2 Flow Rate FiO2 11/05/24 16:30 97.0 53 14 144/78 (100) 97 97.0 11/05/24 08:00 Room Air* 0 96 21 Total Intake and Output 11/04/24 11/04/24 11/05/24 15:00 23:00 07:00 Intake Total 0 ml Balance 0 ml medications Current Medications Medications Dose Ordered Sig/Doreen Route Start Time Stop Time Status Last Admin Dose Admin Nitroglycerin 0.4 mg Q5MINP PRN SL 11/04/24 23:00 Morphine Sulfate 2 mg Q30M PRN IV 11/04/24 23:00 Amlodipine Besylate 5 mg DAILY PO 11/05/24 10:00 11/05/24 12:04 5 MG Pantoprazole Sodium 40 mg DAILY@0600 PO 11/05/24 06:00 11/05/24 05:52 40 MG Aspirin 81 mg DAILY PO 11/05/24 10:00 11/05/24 09:54 81 MG Atorvastatin Calcium 80 mg HS PO 11/06/24 22:00 Examination General Appearance: Alert, Oriented X3, Cooperative, No acute distress HEENT: Atraumatic, PERRLA, EOMI, Mucous membrane moist/pink Respiratory: Clear to auscultation, Normal air movement Cardiovascular: Regular rate, Normal S1, Normal S2, No murmurs, no chest wall tenderness Abdominal: Normal bowel sounds, Soft, No tenderness, No hepatospenomegaly, No masses Extremities: No clubbing, No cyanosis, No edema, Normal pulses, No tenderness/swelling Skin: No rashes, No breakdown, No significant lesion Neuro: Normal gait, Normal speech, Strength at 5/5 X4 ext, Normal tone, Sensation intact, Cranial nerves 3-12 NL, Reflexes 2+ Psych/Mental Status: Mental status NL, Mood NL laboratory and microbiology Laboratory Tests 11/05/24 06:47 11/04/24 16:28 Test 11/05/24 06:47 Range/Units Serum Glucose 101 74-106 mg/dL Labs and/or images reviewed: Labs reviewed by me, Image(s) reviewed by me Problem List/Assessment/Plan Problem List/Assessment/Plan Chest pain, possibly cardiac Stable angina PVC, bigeminy History of hypertension Hypertensive heart disease Sinus bradycardia Ruled out pulmonary emboli/DVT Obesity * EKGs upon admission showed bigeminal PVCs, currently sinus rhythm with LBB * Troponin I and BNP is are within normal limits Plan/recommendation Consulted cardiology, recommended stress test Aspirin, atorvastatin and metoprolol Continue home meds, amlodipine DIET: Cardiac diet DVT PROPHYLAXIS: Lovenox GI PROPHYLAXIS:: Protonix CODE STATUS: Goal of care discussed for more than 18 minutes, full code DISPOSITION: Telemetry Patient's status and plan discussed with the patient. Case discussed with Dr. Fonseca. Plan discussed with: Patient, Other (RN) My Orders My Orders Orders - MANOJ POE Procedure Category Date Status Time Atorvastatin (Lipitor) PHA 11/06/24 In Process 22:00 * Cardiology Consult CONS 11/05/24 Transmitted 12:43 Date of Service: Nov 05, 2024 Billing Provider: RAPHAEL FONSECA MD Common Visit Codes: [id number] INP/OBS CARE(HIGH) MANOJ POE RESDIENT Nov 05, 2024 18:51 RAPHAEL FONSECA MD Nov 05, 2024 20:20
[2024-11-05] MEDS: METOPROLOL TARTRATE 25 MG TAB PO ONE (19:14)
[2024-11-05] MEDS: amLODIPine BESYLATE 5 MG TAB PO ONE (19:14)
--- NOTE | 2024-11-05 20:57 | DVHSR ---
APPROVED REPORT EXAM: Two-dimensional and M-mode echocardiogram with Doppler and color Doppler. Blood Pressure: 140/77 mmHg INDICATION Chest Pain PVC RISK FACTORS Height: 68, Weight: 185 DIMENSIONS LVDd5.3 (3.8-5.7cm)LA (2D)4.8 (1.9-4.0cm)Aortic Root4.0 (2.0-3.7cm) LVDs3.9 (2.5-4.0cm)LA (MM) (1.9-4.0cm)Aortic Cusp Exc1.6 (1.5-2.0cm) EF (%) 50.0 (55-70%)Rt. Atrium3.8 (1.9-4.0cm)Asc. Aorta cm Mitral Valve MitralMitral Stenosis E wave0.51m/sMV Mean GR.mmHg A wave0.76m/sMV Peak GR.mmHg E/A ratio0.72D MVAcm2 DECEL [id number] 1/2 [id number] IVRTmsDop MVA1.18cm2 Aortic Valve Aortic ValveAortic Stenosis V10.67m/Shaan Mean GR.3mmHg V21.31m/Shaan Peak GR.7mmHg LVOT Diameter2.6 (1.8-2.4cm)Doppler AVA2.71cm2 AI P 1/2 [id number] Pulmonic Valve V20.81m/s Tricuspid Valve TR Velocity2.52m/s [id number] Conclusion LV EF IS 65% NORMAL VALVES NORMAL RV FUNCTION NO EFFUSION DILATED RV MODERATELY DILATED LA
[2024-11-05] MEDS: METOPROLOL TARTRATE 25 MG TAB PO SCH (22:00)
--- NOTE | 2024-11-05 23:49 | DVHINCON2 ---
Date Seen: Nov 05, 2024 Referring Physician MD Raissa resident Reason for Consultation Chest pain, possible stress test History of Present Illness This is a 74-year-old male with a past medical history of hypertension, and obesity who presents to the emergency room with a complaint of chest pain. Patient reports he has been experiencing intermittent chest pain for approximately two months he describes the pain as unprovoked, intermittent, tight in nature, substernal with radiation across both sides of his chest. Associated symptoms include shortness of breath. Initial twelve lead electrocardiogram reveals sinus rhythm with bigeminy PVCs and right bundle branch block. Serial troponin levels have been negative. The patient reports that his primary doctor was in the process of giving him a referral to a manager financial. The patient sees a primary doctor within the [facility] system at [place]. He denies any recent cardiac workup. Chest x-ray shows NAD. LLE Doppler is negative for DVT. CTA chest demonstrated no evidence of acute or chronic pulmonary embolism. Patient was admitted to the hospital. I am asked to consult on this patient. Past Medical History Past medical history reviewed. No other significant than mentioned above. Past Surgical History Left knee replacement Right rotator cuff repair Family History: Cardiovascular disease G8 MOTHER Allergies: Coded Allergies: NO KNOWN ALLERGIES (Unverified , 08/16/16) Home Meds Reported Medications Cholecalciferol (VITAMIN D3) 2,000 Unit Tab, 1 TAB PO DAILY, #30 TAB 5 Refills 11/05/24 Hydralazine Hcl (Hydralazine Hcl) 50 Mg Tab, 50 MG PO TID for 30 Days, MG 08/31/21 Current Medications Current Medications Medications (Trade) Dose Ordered Sig/Doreen Route PRN Reason Start Time Stop Time Status Last Admin Nitroglycerin (Ntrostat Sublingual) 0.4 mg Q5MINP PRN SL FOR CHEST PAIN 11/04/24 23:00 Morphine Sulfate 2 mg Q30M PRN IV FOR CHEST PAIN 11/04/24 23:00 Amlodipine Besylate (Norvasc Tablet) 5 mg DAILY PO 11/05/24 10:00 11/05/24 19:09 DC 11/05/24 12:04 Pantoprazole Sodium (Protonix Tablet) 40 mg DAILY@0600 PO 11/05/24 06:00 11/05/24 05:52 Aspirin 81 mg DAILY PO 11/05/24 10:00 11/05/24 09:54 Atorvastatin Calcium (Lipitor) 80 mg HS PO 11/06/24 22:00 Metoprolol Tartrate (Lopressor Tablet) 12.5 mg BID PO 11/05/24 22:00 Amlodipine Besylate (Norvasc Tablet) 5 mg DAILY PO 11/06/24 10:00 Review of Systems Constitutional: No symptom reported Ears, Nose, & Throat: No symptom reported Eyes: No symptom reported Neurological: No symptoms reported Pulmonary/Respiratory: Shortness of breath Cardiovascular: Chest pain Gastrointestinal: No symptom reported Genitourinary: No symptom reported Musculoskeletal: No symptom reported Skin: No symptom reported Psychiatric: No symptom reported Endocrine: No symptom reported Hematologic/Lymphatic: No symptom reported Vital Signs Vital Signs Date Time Temp Pulse Resp B/P (MAP) Pulse Ox O2 Delivery O2 Flow Rate FiO2 11/05/24 19:14 144/78 11/05/24 19:14 63 11/05/24 16:30 97.0 14 97 97.0 11/05/24 08:00 Room Air* 0 96 21 Physical Exam GENERAL: Alert and oriented x 3. No acute distress. EYES: PERRL, EOMI. Anicteric. HENT: Moist mucous membranes. LUNGS: Clear to auscultation bilaterally. CARDIOVASCULAR: Regular rate and rhythm. ABDOMEN: Soft, nontender and nondistended. EXTREMITIES: No edema. NEUROLOGIC: No focal neurological deficits. SKIN: Warm, dry. Labs/Diagnostic Data Labs Test 11/05/24 06:47 11/04/24 19:21 11/04/24 17:45 11/04/24 16:28 Range/Units Sodium Level 141 136-145 mmol/L Potassium Level 4.1 3.5-5.1 mmol/L Chloride Level 110 H 98-107 mmol/L Carbon Dioxide Level 26 20-31 mmol/L Anion Gap 5 5-15 Blood Urea Nitrogen 16 9-23 mg/dL Creatinine 0.94 0.700-1.30 mg/dL Glomerular Filtration Rate Calc 85 >90 mL/min BUN/Creatinine Ratio 17.0 10.0-20.0 Serum Glucose 101 74-106 mg/dL Hemoglobin A1c 5.5 <5.7 % A1C Calcium Level 9.3 8.7-10.4 mg/dL Magnesium Level 2.1 1.6-2.6 mg/dL Total Bilirubin 0.4 0.2-1.0 mg/dL Aspartate Amino Transferase (AST) 16 13-40 U/L Alanine Aminotransferase (ALT) 17 7-40 U/L Alkaline Phosphatase 109 46-116 U/L B-Type Natriuretic Peptide 60.38 0-100 pg/mL Total Protein 6.2 5.7-8.2 g/dL Albumin 4.0 3.2-4.8 g/dL Triglycerides Level 91 < 150 mg/dL Cholesterol Level 167 < 200 mg/dL LDL Cholesterol 101 H < 100 mg/dL HDL Cholesterol 50 40-59 mg/dL Troponin I High Sensitivity 5 </=54 ng/L Urine Color Light-yellow Yellow Urine Clarity Clear Clear Urine pH 5.5 5.0-9.0 Urine Specific [place] 1.016 1.001-1.035 Urine Protein Negative Negative Urine Ketones Negative Negative Urine Blood Negative Negative /uL Urine Nitrite Negative Negative Urine Bilirubin Negative Negative Urine Urobilinogen Normal Negative mg/dL Urine Leukocyte Esterase Negative Negative /uL Urine RBC None seen 0 - 3 /hpf Urine Microscopic WBC < 1 0-3 /HPF Urine Squamous Epithelial Cells None seen <5 /hpf Urine Bacteria None seen None Seen /hpf Urine Mucus Few None Seen Urine Glucose Normal Normal mg/dL White Blood Count 9.5 4.4-10.8 10^3/uL Red Blood Count 4.72 4.5-5.90 10^6/uL Hemoglobin 14.6 13.5-17.5 g/dL Hematocrit 42.2 41.0-53.0 % Mean Corpuscular Volume 89.5 80.0-100.0 fL Mean Corpuscular Hemoglobin 31.0 28.0-32.0 pg Mean Corpuscular Hemoglobin Concent 34.7 32.0-36.0 g/dL Red Cell Distribution Width 13.7 11.8-14.3 % Platelet Count 158 140-450 10^3/uL Mean Platelet Volume 8.7 6.9-10.8 fL Neutrophils (%) (Auto) 57.6 37.0-80.0 % Lymphocytes (%) (Auto) 31.5 10.0-50.0 % Monocytes (%) (Auto) 8.9 0.0-12.0 % Eosinophils (%) (Auto) 1.3 0.0-7.0 % Basophils (%) (Auto) 0.7 0.0-2.0 % Neutrophils # (Auto) 5.4 1.6-8.6 10 ^3/uL Lymphocytes # (Auto) 3.0 0.4-5.4 10 ^3/uL Monocytes # (Auto) 0.8 0-1.3 10 ^3/uL Eosinophils # (Auto) 0.1 0-0.8 10 ^3/uL Basophils # (Auto) 0.1 0-0.2 10 ^3/uL Nucleated Red Blood Cells 0.1 % D-Dimer, Quantitative 1.80 H 0.0-0.49 mg/L FEU Assessment Chest pain, rule out coronary ischemia. Rule out structural heart disease. Hypertension. Obesity. Plan/Recommendation I agree with your ongoing assessment and care of plan. Patient has been seen by Nury Daniel NP on my behalf, her and I discussed the plan with the patient. Transthoracic echocardiogram to evaluate cardiac function. Chest pain protocol. HEART score: 4 points (moderate score). Blood pressure control. Cardiac surveillance. Nuclear stress test. Additional plan as per the hospital course. Plan discussed with: Patient NYHA Physical activity limitations: NA Date of Service: Nov 05, 2024 Billing Provider: RASHMI GOMEZ MD Cardiology Common Codes: [id number] INP/OBS CARE (High) Cardiology Consultation Codes: [id number] CONSULT <45MIN RASHMI GOMEZ MD Nov 05, 2024 21:00
[2024-11-06] VITALS (8 sets, daily range): BP systolic 107–148; BP diastolic 67–86; PULSE 50–91; RESP 14–19; TEMP 97.5–98.5; O2SAT 93–97
[2024-11-06 05:39] LABS: Basophils # (auto) 0 10 ^3/uL (0-0.2); Basophils % (auto) 0.5 % (0.0-2.0); Eosinophils # (auto) 0.2 10 ^3/uL (0-0.8); Eosinophils % (auto) 2.3 % (0.0-7.0); Hematocrit 44.3 % (41.0-53.0); Hemoglobin 15.2 g/dL (13.5-17.5); Lymphocytes # (auto) 1.8 10 ^3/uL (0.4-5.4); Lymphocytes % (auto) 20.7 % (10.0-50.0); Mean Corpuscular Hemoglobin 30.7 pg (28.0-32.0); Mean Corpuscular Hgb Conc. 34.3 g/dL (32.0-36.0); Mean Corpuscular Volume 89.5 fL (80.0-100.0); Monocytes % (auto) 11.7 % (0.0-12.0); Neutrophils # (auto) 5.6 10 ^3/uL (1.6-8.6); Neutrophils % (auto) 64.8 % (37.0-80.0); Platelet Count (auto) 154 10^3/uL (140-450); Red Blood Cells 4.95 10^6/uL (4.5-5.90); Red Cell Distribution Width 13.9 % (11.8-14.3); White Blood Cell 8.7 10^3/uL (4.4-10.8)
[2024-11-06 06:02] LABS: Alanine Aminotransferase 16 U/L (7-40); Alkaline Phosphatase 107 U/L (46-116); Anion Gap 5 (5-15); Aspartate Aminotransferase 15 U/L (13-40); BUN/Creatinine Ratio 18.7 (10.0-20.0); Blood Urea Nitrogen 17 mg/dL (9-23); Calcium 9.4 mg/dL (8.7-10.4); Carbon Dioxide 27 mmol/L (20-31); Glucose 102 mg/dL (74-106); Potassium 4.8 mmol/L (3.5-5.1); Sodium 141 mmol/L (136-145); Total Protein 6.2 g/dL (5.7-8.2)
[2024-11-06 06:03] LABS: Bilirubin, Total 0.8 mg/dL (0.2-1.0)
[2024-11-06 06:04] LABS: Chloride 109 mmol/L (98-107)
[2024-11-06] MEDS: amLODIPine BESYLATE 5 MG TAB PO SCH (09:56)
--- NOTE | 2024-11-06 14:48 | DVHPNRES ---
Progress Note Date Seen: Nov 06, 2024 Resident Creating Document: MANOJ POE HEYDI Has the PT tested + for MRSA If YES, has PT been informed?: No Medical Necessity Reason Pt with a Central, PICC or Fol: No Subjective Review of Systems Patient seen and examined at bedside. Patient is feeling better since admission. Objective vital signs Vital Sign Date Time Temp Pulse Resp B/P (MAP) Pulse Ox O2 Delivery O2 Flow Rate FiO2 11/06/24 09:56 148/79 11/06/24 09:56 55 11/06/24 08:30 97.5 16 97 97.5 11/06/24 08:00 Room Air* 0 21 Total Intake and Output 11/05/24 11/05/24 11/06/24 15:00 23:00 07:00 Intake Total 150 ml Balance 150 ml medications Current Medications Medications Dose Ordered Sig/Doreen Route Start Time Stop Time Status Last Admin Dose Admin Nitroglycerin 0.4 mg Q5MINP PRN SL 11/04/24 23:00 Morphine Sulfate 2 mg Q30M PRN IV 11/04/24 23:00 Pantoprazole Sodium 40 mg DAILY@0600 PO 11/05/24 06:00 11/06/24 05:37 40 MG Aspirin 81 mg DAILY PO 11/05/24 10:00 11/06/24 09:56 81 MG Atorvastatin Calcium 80 mg HS PO 11/06/24 22:00 Metoprolol Tartrate 12.5 mg BID PO 11/05/24 22:00 Amlodipine Besylate 5 mg DAILY PO 11/06/24 10:00 11/06/24 09:56 5 MG Examination General Appearance: Alert, Oriented X3, Cooperative, No acute distress HEENT: Atraumatic, PERRLA, EOMI, Mucous membrane moist/pink Respiratory: Clear to auscultation, Normal air movement Cardiovascular: Regular rate, Normal S1, Normal S2, No murmurs, no chest wall tenderness Abdominal: Normal bowel sounds, Soft, No tenderness, No hepatospenomegaly, No masses Extremities: No clubbing, No cyanosis, No edema, Normal pulses, No tenderness/swelling Skin: No rashes, No breakdown, No significant lesion Neuro: Normal gait, Normal speech, Strength at 5/5 X4 ext, Normal tone, Sensation intact, Cranial nerves 3-12 NL, Reflexes 2+ Psych/Mental Status: Mental status NL, Mood NL laboratory and microbiology Laboratory Tests 11/06/24 05:02 Test 11/06/24 05:02 Range/Units Serum Glucose 102 74-106 mg/dL Labs and/or images reviewed: Labs reviewed by me, Image(s) reviewed by me Problem List/Assessment/Plan Problem List/Assessment/Plan Chest pain, possibly cardiac Stable angina PVC, bigeminy History of hypertension Hypertensive heart disease Sinus bradycardia Ruled out pulmonary emboli/DVT Obesity * EKGs upon admission showed bigeminal PVCs, currently sinus rhythm with LBB * Troponin I and BNP is are within normal limits Plan/recommendation Consulted cardiology, recommended stress test for Friday Aspirin, atorvastatin and metoprolol Continue home meds, amlodipine DIET: Cardiac diet DVT PROPHYLAXIS: Lovenox GI PROPHYLAXIS:: Protonix CODE STATUS: Goal of care discussed for more than 18 minutes, full code DISPOSITION: Telemetry Patient's status and plan discussed with the patient. Case discussed with Dr. Lara. Plan discussed with: Patient, Other (RN) My Orders My Orders Orders - MANOJ POE Procedure Category Date Status Time Metoprolol Tartrate PHA 11/05/24 In Process Tablet (Lopressor Ta 22:00 Amlodipine Tablet PHA 11/06/24 In Process (Norvasc Tablet) 10:00 Date of Service: Nov 06, 2024 Billing Provider: ADRIANE LARA MD Common Visit Codes: [id number] INP/OBS CARE(HIGH) MANOJ POE RESDIENT Nov 06, 2024 14:48 ADRIANE LARA MD Nov 08, 2024 21:38
[2024-11-06] MEDS: ATORVASTATIN 20 MG TAB PO SCH (21:46)
[2024-11-07] VITALS (8 sets, daily range): BP systolic 114–142; BP diastolic 63–77; PULSE 51–73; RESP 17–19; TEMP 97.3–98.2; O2SAT 91–96
--- NOTE | 2024-11-07 00:26 | DVHPN2 ---
Progress Note - Dictate Date Seen: Nov 06, 2024 Has the PT tested + for MRSA If YES, has PT been informed?: No Medical Necessity Reason Pt with a Central, PICC or Fol: No Subjective Patient was seen and evaluated in follow up. Patient reports chest pain has resolved. CBC and Chemistry are unremarakble. Echocardiogram shows an EF of 65%. Telemetry reviewed. vital signs Vital Sign Date Time Temp Pulse Resp B/P (MAP) Pulse Ox O2 Delivery O2 Flow Rate FiO2 11/06/24 21:47 91 129/81 11/06/24 21:00 98.2 19 96 98.2 11/06/24 20:00 Room Air* 0 21 Total Intake and Output 11/05/24 11/05/24 11/06/24 15:00 23:00 07:00 Intake Total 150 ml Balance 150 ml medications Current Medications Medications Dose Ordered Sig/Doreen Route Start Time Stop Time Status Last Admin Dose Admin Nitroglycerin 0.4 mg Q5MINP PRN SL 11/04/24 23:00 Morphine Sulfate 2 mg Q30M PRN IV 11/04/24 23:00 Pantoprazole Sodium 40 mg DAILY@0600 PO 11/05/24 06:00 11/06/24 05:37 40 MG Aspirin 81 mg DAILY PO 11/05/24 10:00 11/06/24 09:56 81 MG Atorvastatin Calcium 80 mg HS PO 11/06/24 22:00 11/06/24 21:46 80 MG Metoprolol Tartrate 12.5 mg BID PO 11/05/24 22:00 11/06/24 21:47 12.5 MG Amlodipine Besylate 5 mg DAILY PO 11/06/24 10:00 11/06/24 09:56 5 MG objective GENERAL: Alert and oriented x 3. No acute distress. EYES: PERRL, EOMI. Anicteric. HENT: Moist mucous membranes. LUNGS: Clear to auscultation bilaterally. CARDIOVASCULAR: Regular rate and rhythm. ABDOMEN: Soft, nontender and nondistended. EXTREMITIES: No edema. NEUROLOGIC: No focal neurological deficits. SKIN: Warm, dry. laboratory and microbiology Laboratory Tests 11/06/24 05:02 Test 11/06/24 05:02 Range/Units Serum Glucose 102 74-106 mg/dL Problem List Chest pain, rule out coronary ischemia. Rule out structural heart disease. Hypertension. Obesity. Assessment/Plan Continued all current supportive medical care. Amlodipine. Aspirin, Lipitor, Metoprolol. Morphine for pain management. GI prophylactics. Additional plan as per the hospital course. Plan discussed with: Patient RASHMI GOMEZ MD Nov 06, 2024 21:56
--- NOTE | 2024-11-07 11:51 | DVHPNRES ---
Progress Note Date Seen: Nov 07, 2024 Resident Creating Document: WALDO ANNE RESIDENT Has the PT tested + for MRSA If YES, has PT been informed?: No Medical Necessity Reason Pt with a Central, PICC or Fol: No Subjective Review of Systems Patient is a 74-year-old male with a past medical history of hypertension presented to the ED with a chief complaint of chest pain. Patient reports chest pain on and off in the last month, described the has pressure-like in character in the middle of his chest, nonradiating, occurred while he was ambulating or at rest had relieved on its own. Patient reports the chest pain got worse yesterday associated with shortness of breath and tightness, palpitations and numbness of his arms but denied sweating following which she came to the hospital for further evaluation. Patient goes to the [facility] and reports that about 3 weeks ago echocardiogram was done which was reported to be normal but he does not have the official report. Past medical history: Hypertension Past surgical history: Multiple surgeries of the left knee for knee replacement Social history: Patient lives with and denies smoking, alcohol, drug use Family history: Patient denies any significant family history of coronary artery disease Home medications: As per the patient she takes amlodipine for high blood pressure,( records indicate lisinopril as well as hydralazine in addition to amlodipine) 11/07/2024: no chest pain today, pending stress test on Friday Objective vital signs Vital Sign Date Time Temp Pulse Resp B/P (MAP) Pulse Ox O2 Delivery O2 Flow Rate FiO2 11/07/24 10:08 142/77 11/07/24 10:08 73 11/07/24 08:55 97.3 19 94 97.3 11/07/24 08:00 Room Air* 0 21 Total Intake and Output 11/06/24 11/06/24 11/07/24 15:00 23:00 07:00 Intake Total 110 ml 900 ml Balance 110 ml 900 ml medications Current Medications Medications Dose Ordered Sig/Doreen Route Start Time Stop Time Status Last Admin Dose Admin Nitroglycerin 0.4 mg Q5MINP PRN SL 11/04/24 23:00 Morphine Sulfate 2 mg Q30M PRN IV 11/04/24 23:00 Pantoprazole Sodium 40 mg DAILY@0600 PO 11/05/24 06:00 11/07/24 05:57 40 MG Aspirin 81 mg DAILY PO 11/05/24 10:00 11/07/24 10:07 81 MG Atorvastatin Calcium 80 mg HS PO 11/06/24 22:00 11/06/24 21:46 80 MG Metoprolol Tartrate 12.5 mg BID PO 11/05/24 22:00 11/07/24 10:08 12.5 MG Amlodipine Besylate 5 mg DAILY PO 11/06/24 10:00 11/07/24 10:08 5 MG Examination Gen - no pallor, no icterus, no cyanosis, no clubbing, no LAD, no edema . Skin - Patients skin is warm and dry. HEENT - normocephalic, atraumatic, moist mucous membranes. Neck - full ROM, no LAD, no JVD Pulmonary - B/L equal breath sounds, no crackles, no wheezing, no stridor. cardiovascular - regularly irregular S1,S2 heard, no added sounds, no murmurs heard. GI - soft, nontender abdomen. no hepatospleenomegaly. Bowel sounds normoactive Neurological - Patient is A/O X 3 . Bilateral upper extremity strength 5/5, bilateral lower extremity strength 5/5, no facial droop, normal speech, no tremor, no sensory deficiets. laboratory and microbiology Laboratory Tests 11/06/24 05:02 Test 11/06/24 05:02 Range/Units Serum Glucose 102 74-106 mg/dL Problem List/Assessment/Plan Problem List/Assessment/Plan #Chest pain, possibly cardiac #Stable angina #PVC, bigeminy #History of hypertension #Hypertensive heart disease #Sinus bradycardia #Ruled out pulmonary emboli/DVT #Obesity * EKGs upon admission showed bigeminal PVCs, currently sinus rhythm with LBB * Troponin I and BNP is are within normal limits Plan/recommendation Consulted cardiology, recommended stress test for Friday Aspirin, atorvastatin and metoprolol Continue home meds, amlodipine DIET: Cardiac diet DVT PROPHYLAXIS: Lovenox GI PROPHYLAXIS:: Protonix CODE STATUS: Goal of care discussed for more than 18 minutes, full code DISPOSITION: Telemetry Patient's status and plan discussed with the patient. Case discussed with Dr. Lara Plan discussed with: Patient, Other (rn) Date of Service: Nov 07, 2024 Billing Provider: ADRIANE LARA MD Common Visit Codes: [id number] INP/OBS CARE(HIGH) WALDO ANNE RESIDENT Nov 07, 2024 11:51 ADRIANE LARA MD Nov 08, 2024 21:39
--- NOTE | 2024-11-07 23:21 | DVHPN2 ---
Progress Note - Dictate Date Seen: Nov 07, 2024 Has the PT tested + for MRSA If YES, has PT been informed?: No Medical Necessity Reason Pt with a Central, PICC or Fol: No Subjective Patient was seen and evaluated in follow up. Patient denies any further chest pain at this time. Patient stable on room air. Patient is hypertensive 142/77. Pending stress test on Friday Telemetry reviewed. vital signs Vital Sign Date Time Temp Pulse Resp B/P (MAP) Pulse Ox O2 Delivery O2 Flow Rate FiO2 11/07/24 10:08 142/77 11/07/24 10:08 73 11/07/24 08:55 97.3 19 94 97.3 11/07/24 08:00 Room Air* 0 21 Total Intake and Output 11/06/24 11/06/24 11/07/24 15:00 23:00 07:00 Intake Total 110 ml 900 ml Balance 110 ml 900 ml medications Current Medications Medications Dose Ordered Sig/Doreen Route Start Time Stop Time Status Last Admin Dose Admin Nitroglycerin 0.4 mg Q5MINP PRN SL 11/04/24 23:00 Morphine Sulfate 2 mg Q30M PRN IV 11/04/24 23:00 Pantoprazole Sodium 40 mg DAILY@0600 PO 11/05/24 06:00 11/07/24 05:57 40 MG Aspirin 81 mg DAILY PO 11/05/24 10:00 11/07/24 10:07 81 MG Atorvastatin Calcium 80 mg HS PO 11/06/24 22:00 11/06/24 21:46 80 MG Metoprolol Tartrate 12.5 mg BID PO 11/05/24 22:00 11/07/24 10:08 12.5 MG Amlodipine Besylate 5 mg DAILY PO 11/06/24 10:00 11/07/24 10:08 5 MG objective GENERAL: Alert and oriented x 3. No acute distress. EYES: PERRL, EOMI. Anicteric. HENT: Moist mucous membranes. LUNGS: Clear to auscultation bilaterally. CARDIOVASCULAR: Regular rate and rhythm. ABDOMEN: Soft, nontender and nondistended. EXTREMITIES: No edema. NEUROLOGIC: No focal neurological deficits. SKIN: Warm, dry. laboratory and microbiology Laboratory Tests 11/06/24 05:02 Test 11/06/24 05:02 Range/Units Serum Glucose 102 74-106 mg/dL Problem List Chest pain, rule out coronary ischemia. Rule out structural heart disease. Hypertension. Obesity. Assessment/Plan Continued all current supportive medical care. Stress test. Amlodipine. Aspirin, Lipitor, Metoprolol. Morphine for pain management. GI prophylactics. Additional plan as per the hospital course. Plan discussed with: Patient RASHMI GOMEZ MD Nov 07, 2024 13:19
[2024-11-08 01:00] VITALS: BP 113/73; PULSE 73; RESP 18; TEMP 98.1; O2SAT 94
[2024-11-08 05:00] VITALS: BP 109/78; PULSE 62; RESP 18; TEMP 97.2; O2SAT 97
[2024-11-08 07:45] VITALS: PULSE 56
[2024-11-08 09:00] VITALS: BP 141/81; PULSE 54; RESP 20; TEMP 97.4; O2SAT 96
[2024-11-08] MEDS: REGADENOSON 0.4 MG/5 ML SYRG IV ONE ×2 (09:36)
--- NOTE | 2024-11-08 12:57 | DVHDSRES ---
Discharge Summary Date of Admission Resident Creating Document: WALDO ANNE RESIDENT Nov 04, 2024 at 22:48 Date of Discharge: Nov 08, 2024 Admitting Diagnosis Chest pain Labs/Diagnostic Data: Laboratory Results Test 11/06/24 05:02 11/05/24 06:47 11/04/24 19:21 11/04/24 17:45 White Blood Count 8.7 10^3/uL (4.4-10.8) Red Blood Count 4.95 10^6/uL (4.5-5.90) Hemoglobin 15.2 g/dL (13.5-17.5) Hematocrit 44.3 % (41.0-53.0) Mean Corpuscular Volume 89.5 fL (80.0-100.0) Mean Corpuscular Hemoglobin 30.7 pg (28.0-32.0) Mean Corpuscular Hemoglobin Concent 34.3 g/dL (32.0-36.0) Red Cell Distribution Width 13.9 % (11.8-14.3) Platelet Count 154 10^3/uL (140-450) Mean Platelet Volume 8.9 fL (6.9-10.8) Neutrophils (%) (Auto) 64.8 % (37.0-80.0) Lymphocytes (%) (Auto) 20.7 % (10.0-50.0) Monocytes (%) (Auto) 11.7 % (0.0-12.0) Eosinophils (%) (Auto) 2.3 % (0.0-7.0) Basophils (%) (Auto) 0.5 % (0.0-2.0) Neutrophils # (Auto) 5.6 10 ^3/uL (1.6-8.6) Lymphocytes # (Auto) 1.8 10 ^3/uL (0.4-5.4) Monocytes # (Auto) 1.0 10 ^3/uL (0-1.3) Eosinophils # (Auto) 0.2 10 ^3/uL (0-0.8) Basophils # (Auto) 0 10 ^3/uL (0-0.2) Nucleated Red Blood Cells 0.0 % Sodium Level 141 mmol/L (136-145) Potassium Level 4.8 mmol/L (3.5-5.1) Chloride Level 109 mmol/L (98-107) Carbon Dioxide Level 27 mmol/L (20-31) Anion Gap 5 (5-15) Blood Urea Nitrogen 17 mg/dL (9-23) Creatinine 0.91 mg/dL (0.700-1.30) Glomerular Filtration Rate Calc 88 mL/min (>90) BUN/Creatinine Ratio 18.7 (10.0-20.0) Serum Glucose 102 mg/dL (74-106) Calcium Level 9.4 mg/dL (8.7-10.4) Total Bilirubin 0.8 mg/dL (0.2-1.0) Aspartate Amino Transferase (AST) 15 U/L (13-40) Alanine Aminotransferase (ALT) 16 U/L (7-40) Alkaline Phosphatase 107 U/L (46-116) Total Protein 6.2 g/dL (5.7-8.2) Albumin 4.0 g/dL (3.2-4.8) Hemoglobin A1c 5.5 % A1C (<5.7) Magnesium Level 2.1 mg/dL (1.6-2.6) B-Type Natriuretic Peptide 60.38 pg/mL (0-100) Triglycerides Level 91 mg/dL (< 150) Cholesterol Level 167 mg/dL (< 200) LDL Cholesterol 101 mg/dL (< 100) HDL Cholesterol 50 mg/dL (40-59) Troponin I High Sensitivity 5 ng/L (</=54) Urine Color Light-yellow (Yellow) Urine Clarity Clear (Clear) Urine pH 5.5 (5.0-9.0) Urine Specific [place] 1.016 (1.001-1.035) Urine Protein Negative (Negative) Urine Ketones Negative (Negative) Urine Blood Negative /uL (Negative) Urine Nitrite Negative (Negative) Urine Bilirubin Negative (Negative) Urine Urobilinogen Normal mg/dL (Negative) Urine Leukocyte Esterase Negative /uL (Negative) Urine RBC None seen /hpf (0 - 3) Urine Microscopic WBC < 1 /HPF (0-3) Urine Squamous Epithelial Cells None seen /hpf (<5) Urine Bacteria None seen /hpf (None Seen) Urine Mucus Few (None Seen) Urine Glucose Normal mg/dL (Normal) Test 11/04/24 16:28 D-Dimer, Quantitative 1.80 mg/L FEU (0.0-0.49) Other Laboratory Tests 11/06/24 05:02 Brief Hx & Hospital Course: Patient is a 74-year-old male with a past medical history of hypertension presented to the ED with a chief complaint of chest pain. Patient reports chest pain on and off in the last month, described the has pressure-like in character in the middle of his chest, nonradiating, occurred while he was ambulating or at rest had relieved on its own. Patient reports the chest pain got worse yesterday associated with shortness of breath and tightness, palpitations and numbness of his arms but denied sweating following which she came to the hospital for further evaluation. Patient goes to the [facility] and reports that about 3 weeks ago echocardiogram was done which was reported to be normal but he does not have the official report. Hospital course: The patient was admitted due to chest pain and possible ACS. The patient was started on atorvastatin, aspirin patient was given amlodipine and metoprolol. Echocardiogram performed, showed LVEF 65%, normal wall studies with moderately dilated LA. EKG upon admission showed bigeminal PVCs, and follow up days PVC improved and the patient had sinus rhythm with LBB pattern. Troponin I and BNP were within normal limits. Cardiology consulted, recommended stress test. Stress test performed and showed no significant ischemic changes. On 11/08/2024 the patient was feeling better since admission discharge plan discussed with the patient this patient discharged home. Discharge plan: Follow up with the PCP within 1 week of the discharge. Follow up with the Cardiology on outpatient basis. Continue home meds Operations or Procedures [place] [address] Ph: [phone] DIAGNOSTIC IMAGING Diagnostic Imaging Report : [id number] Signed PATIENT: KAN REDDY ACCT: [id number] UNIT: [id number] : 1950 LOC: [facility] ROOM / BED: [address] [place] [address] AGE / SEX: 74 / M ADM STATUS: ADM IN SERVICE 47 ORDERING PHYSICIAN: DL MOJICA RESIDENT PROCEDURE(s): ECIDC - ECHO 2D MODE CARDIAC DOP REASON: chest pain, PVC ORDER NUMBER(s): [id number], ACCESSION NUMBER(s): [id number] APPROVED REPORT EXAM: Two-dimensional and M-mode echocardiogram with Doppler and color Doppler. Blood Pressure: 140/77 mmHg INDICATION Chest Pain PVC RISK FACTORS Height: 68, Weight: 185 DIMENSIONS LVDd 5.3 (3.8-5.7cm) LA (2D) 4.8 (1.9-4.0cm) Aortic Root 4.0 (2.0- 3.7cm) LVDs 3.9 (2.5-4.0cm) LA (MM) (1.9-4.0cm) Aortic Cusp Exc 1.6 (1.5- 2.0cm) EF (%) 50.0 (55-70%) Rt. Atrium 3.8 (1.9-4.0cm) Asc. Aorta cm Mitral Valve Mitral Mitral Stenosis E wave 0.51m/s MV Mean GR. mmHg A wave 0.76m/s MV Peak GR. mmHg E/A ratio 0.7 2D MVA cm2 DECEL Time 285ms PRESS 1/2 Time 187ms IVRT ms Dop MVA 1.18cm2 Aortic Valve Aortic Valve Aortic Stenosis V1 0.67m/s AO Mean GR. 3mmHg V2 1.31m/s AO Peak GR. 7mmHg LVOT Diameter 2.6 (1.8-2.4cm) Doppler SHO 2.71cm2 AI P 1/2 Time 657.18ms Pulmonic Valve V2 0.81m/s Tricuspid Valve TR Velocity 2.52m/s RVSP 32mmHg Conclusion LV EF IS 65% NORMAL VALVES NORMAL RV FUNCTION NO EFFUSION DILATED RV MODERATELY DILATED LA SIGNED BY: RASHMI GOMEZ MD SIGNED DATE/TIME: 11/05/242056 CC: Condition at Discharge: Good Final Diagnosis/Problems List Chest pain, likely due to musculoskeletal Ruled out ACS Rule out structural heart disease Hypertension Obesity PVC, bigeminy Hypertensive heart disease Sinus bradycardia Ruled out pulmonary emboli Ruled out DVT Discharge Disposition: Home Discharge Statement: "Patient was advised to return to the ER or call 911 if any headaches, dizziness, shortness of breath, chest pain, abdominal pain, bleeding, fevers, or worsening of medical condition. Patient was counseled about treatment plan, medications, possible side effects, patientverbalized understanding. All questions were answered to the best of my ability. This discharge took greater then 30 minutes in planning, reviewing documentation, counseling the patient, and discussing with other team members." ASSESSMENT ASSESSMENT Assessment Date of Service: Nov 08, 2024 Billing Provider: RAPHAEL FONSECA MD Common Visit Codes: [id number] DISCH DAY >30min MANOJ POE RESDIRENEE Nov 08, 2024 12:57 RAPHAEL FONSECA MD Nov 09, 2024 14:50
[2024-11-08 13:00] VITALS: BP 123/79; PULSE 65; RESP 18; TEMP 97.6; O2SAT 98
--- NOTE | 2024-11-08 14:20 | DVHSR ---
APPROVED REPORT Exam: Nuclear Stress Test BMI: 0 Stress Test Details HR Max Heart Rate (APMHR): 145.486173 bpm Target HR (85% APMHR): 123.999114 bpm BP ECG Stress ECG Conclusion lvef 47% mild dilated LV inferior wall attentuation artifact no severe stress induced ischemia noted NM EXAM: Myocardial Perfusion REST/STRESS Imaging Protocol: Rest Tc-99m/Stress Tc-99m 1 day Resting Data Rest SPECT myocardial perfusion imaging was performed in supine position 60 minutes following the int ravenous injection of 10.0 mCi of Tc-99m Sestamibi. Time of rest injection: 07:49 Date: 11/08/2024 Time of rest imagin:49 Date: 11/08/2024 Administration Route: IV Administration Site: Right Arm Pharmacologic Stress Pharmacologic stress test was performed by injecting Regadenoson 0.4 mg IV push followed by the intra venous injection of 33.2 mCi of Tc-99m Sestamibi. Time of stress injection: 09:30 Date: 11/08/2024 Time of stress imagin:30 Date: 11/08/2024 Administration Route: IV Administration Site: Right Arm Gated Stress SPECT was performed 60 minutes after stress injection. The images were gated to evaluate regional wall motion and calculate left ventricular ejection fracti on. Stress only was performed in the Supine position. Nuclear Conclusion Nuclear Findings: negative for ischemia lvef 47% mild dilated LV inferior wall attentuation artifact no severe stress induced ischemia noted
[2024-11-08 15:20] VITALS: TEMP 36.4
--- NOTE | 2024-11-09 00:23 | DVHPN2 ---
Progress Note - Dictate Date Seen: Nov 08, 2024 Has the PT tested + for MRSA If YES, has PT been informed?: No Medical Necessity Reason Pt with a Central, PICC or Fol: No Subjective Patient was seen and evaluated in follow up. Stress test show an EF of 47% and is negative for ischemia. Patient is cardiac stable for discharge. Telemetry reviewed. vital signs Vital Sign Date Time Temp Pulse Resp B/P (MAP) Pulse Ox O2 Delivery O2 Flow Rate FiO2 11/08/24 15:20 36.4 11/08/24 13:00 65 18 123/79 (94) 98 11/08/24 07:45 Room Air* 0 21 objective GENERAL: Alert and oriented x 3. No acute distress. EYES: PERRL, EOMI. Anicteric. HENT: Moist mucous membranes. LUNGS: Clear to auscultation bilaterally. CARDIOVASCULAR: Regular rate and rhythm. ABDOMEN: Soft, nontender and nondistended. EXTREMITIES: No edema. NEUROLOGIC: No focal neurological deficits. SKIN: Warm, dry. laboratory and microbiology Laboratory Tests 11/06/24 05:02 Test 11/06/24 05:02 Range/Units Serum Glucose 102 74-106 mg/dL Problem List Chest pain, rule out coronary ischemia. Rule out structural heart disease. Hypertension. Obesity. Assessment/Plan Continued all current supportive medical care. Amlodipine. Aspirin, Lipitor, Metoprolol. Morphine for pain management. GI prophylactics. Additional plan as per the hospital course. Plan discussed with: Patient RASHMI GOMEZ MD Nov 09, 2024 00:23
== END 2024-11-08 15:50 | disposition home or self-care (01) | DRG 313 ==
LOC: ER 16:29 → OVERFLOW 22:48 → TELE-WESTW 22:51
PROVIDERS: ADMIT Student in an Organized Health Care Education/Training Program; ATTEND Emergency Medicine
DX: R07.89 Other chest pain (principal); E66.9 Obesity, unspecified; I49.3 Ventricular premature depolarization; R00.1 Bradycardia, unspecified; I45.10 Unspecified right bundle-branch block; I11.9 Hypertensive heart disease without heart failure; Z96.652 Presence of left artificial knee joint; I20.89 Other forms of angina pectoris; Z79.899 Other long term (current) drug therapy; Z82.3 Family history of stroke; Z82.49 Family history of ischemic heart disease and other diseases of the circulatory system; Z68.28 Body mass index [BMI] 28.0-28.9, adult; I25.2 Old myocardial infarction
CPT/HCPCS: 36415; 71045; 71275; 78452; 80048; 80053; 80061; 81001; 83036; 83735; 83880; 84484; 85025; 85379; 93005; 93306; 93971; 99291; G0378